=== PATIENT | male | born 1990 | race American Indian/Alaskan Native ===

== ENCOUNTER 2018-04-01 17:43 | Emergency (ER) | payer SELFPAY ==
[2018-04-01 18:04] VITALS: BP 133/91
[2018-04-01] MEDS ORDERED: ZOFRAN IV ONE (19:43)
[2018-04-01] MEDS ORDERED: NACL 0.9% 1000 ML 1,000 ML IV ONE (19:43)
[2018-04-01 20:11] LABS: Basophils % (Auto) 0.2 % (0.0-1.8); Eosinophils # (Auto) 0.1 K/mm3 (0.0-0.4); Hematocrit 58.5 % (35.5-45.6); Hemoglobin 19.5 gm/dl (11.8-15.2); Lymphocytes # (Auto) 1.5 K/mm3 (1.2-5.4); Mean Corpuscular HGB Conc 33 % (32-34); Mean Corpuscular Volume 91 fl (84-94); Monocytes # (Auto) 1.1 K/mm3 (0.0-0.8); Monocytes % (Auto) 9.2 % (0.0-7.3); Platelet Count 248 K/mm3 (140-440); Red Blood Count 6.42 M/mm3 (3.65-5.03); Red Cell Distribution Width 13.4 % (13.2-15.2)
[2018-04-01 20:30] LABS: Alanine Aminotransferase 23 units/L (7-56); Albumin 4.8 g/dL (3.9-5); BUN/Creatinine Ratio 8; Blood Urea Nitrogen 9 mg/dL (9-20); Calcium 9.7 mg/dL (8.4-10.2); Hemolysis Index 32
--- NOTE | 2018-04-01 20:52 | Emergency Department Report ---
ED Abdominal Pain HPI - General Chief Complaint: Abdominal Pain Stated Complaint: HEADACHE/ABD PAIN/DIARRHEA/VOMITING Time Seen by Provider: 04/01/18 19:18 Source: patient Mode of arrival: Ambulatory Limitations: No Limitations - History of Present Illness Initial Comments: 28-year-old -[place] male comes in complaining of all over abdominal flor n with nausea vomiting and diarrhea since yesterday. Patient states he has a headache that started today but has resolved. Patient denies any blurred vision and no dizziness. Patient reports intermittent nausea not able to hold down any food fluids. He reports 2 days of constant diarrhea. He does admit to having 3-4 shots of liquor on Sunday. He reports no other sick contact denies any unusual foods. He reports that the abdominal pain is sharp in nature has watery diarrhea and is located in the epigastric to umbilicus. Patient reports no past medical history. MD Complaint: abdominal pain -: days(s) (1) Location: diffuse Severity: severe Severity scale (0 -10): 7 Quality: sharp Consistency: constant (diarrhea), intermittent (nausea), colicky (abdominal pain) Improves With: nothing Worsens With: nothing Associated Symptoms: nausea, vomiting, diarrhea - Related Data Previous Rx's Medication Instructions Recorded Last Taken Type Ciprofloxacin HCl [Cipro] 500 mg PO BID #14 tablet 04/01/18 Unknown Rx Ondansetron [Zofran Odt] 4 mg PO Q8HR #12 tab.rapdis 04/01/18 Unknown Rx metroNIDAZOLE [Flagyl TAB] 250 mg PO Q8HR 7 Days #21 tablet 04/01/18 Unknown Rx Allergies Allergy/AdvReac Type Severity Reaction Status Date / Time shellfish derived Allergy Angioedema Verified 04/01/18 18:00 ED Review of Systems ROS: Stated complaint: HEADACHE/ABD PAIN/DIARRHEA/VOMITING Other details as noted in HPI Comment: All other systems reviewed and negative Gastrointestinal: abdominal pain, nausea, vomiting, diarrhea Neurological: headache (resolved) ED Past Medical Hx - Past Medical History Previous Medical History?: No - Surgical History Past Surgical History?: Yes Additional Surgical History: hernia repair at age 4 - Social History Smoking Status: Never Smoker Substance Use Type: Alcohol - Medications Home Medications: Home Medications Medication Instructions Recorded Confirmed Last Taken Type Ciprofloxacin HCl [Cipro] 500 mg PO BID #14 tablet 04/01/18 Unknown Rx Ondansetron [Zofran Odt] 4 mg PO Q8HR #12 tab.rapdis 04/01/18 Unknown Rx metroNIDAZOLE [Flagyl TAB] 250 mg PO Q8HR 7 Days #21 tablet 04/01/18 Unknown Rx ED Physical Exam - General Limitations: No Limitations General appearance: alert, in no apparent distress - Head Head exam: Present: atraumatic, normocephalic - Eye Eye exam: Present: EOMI - ENT ENT exam: Present: mucous membranes moist - Respiratory Respiratory exam: Present: normal lung sounds bilaterally. Absent: respiratory distress - Cardiovascular Cardiovascular Exam: Present: regular rate, normal rhythm. Absent: systolic murmur, diastolic murmur, rubs, gallop - GI/Abdominal GI/Abdominal exam: Present: soft, tenderness, normal bowel sounds - Neurological Exam Neurological exam: Present: alert, oriented X3 - Psychiatric Psychiatric exam: Present: normal affect, normal mood - Skin Skin exam: Present: warm, dry, intact, normal color. Absent: rash ED Course Vital Signs 04/01/18 04/01/18 18:00 22:04 Temperature 97.4 F L Pulse Rate 95 H Respiratory 18 20 Rate Blood Pressure 133/91 O2 Sat by Pulse 99 Oximetry - Reevaluation(s) Reevaluation #1: 04/01/18 21:56 po challenge started. ED Medical Decision Making - Lab Data Result diagrams: 04/01/18 19:50 04/01/18 19:50 Laboratory Tests 04/01/18 04/01/18 04/01/18 19:50 19:50 21:03 WBC 11.5 H RBC 6.42 H Hgb 19.5 H Hct 58.5 H MCV 91 MCH 30 MCHC 33 RDW 13.4 Plt Count 248 Lymph % (Auto) 13.0 L Kidder % (Auto) 9.2 H Eos % (Auto) 1.0 Baso % (Auto) 0.2 Lymph # 1.5 Kidder # 1.1 H Eos # 0.1 Baso # 0.0 Seg Neutrophils % 76.6 H Seg Neutrophils # 8.8 H Sodium 139 Potassium 3.9 Chloride 99.0 Carbon Dioxide 26 Anion Gap 18 BUN 9 Creatinine 1.2 Estimated GFR > 60 BUN/Creatinine Ratio 8 Glucose 98 Calcium 9.7 Total Bilirubin 1.10 AST 20 ALT 23 Alkaline Phosphatase 81 Total Protein 8.5 H Albumin 4.8 Albumin/Globulin Ratio 1.3 Lipase 15 Urine Color Straw Urine Turbidity Clear Urine pH 6.0 Ur Specific Stark 1.004 Urine Protein <15 mg/dl Urine Glucose (UA) Neg Urine Ketones Tr Urine Blood Neg Urine Nitrite Neg Urine Bilirubin Neg Urine Urobilinogen < 2.0 Ur Leukocyte Esterase Neg Urine WBC (Auto) < 1.0 Urine RBC (Auto) 1.0 - Medical Decision Making Patient has been evaluated by this provider in fast track. IV fluid CBC CMP Zofran, Toradol lipase stool culture stool WBC and O&P has been ordered and collected. As well as a urinalysis. Discussed case with Dr. Godfrey recommended for patient to be discharged home on Cipro and Flagyl and Zofran. Patient is started by mouth challenge now. Critical care attestation.: If time is entered above; I have spent that time in minutes in the direct care of this critically ill patient, excluding procedure time. ED Disposition Clinical Impression: Nausea vomiting and diarrhea, Acute infectious diarrhea Disposition: - TO HOME OR SELFCARE Is pt being admited?: No Does the pt Need Aspirin: No Condition: Stable Instructions: Gastroenteritis (ED), Acute Nausea and Vomiting (ED), Abdominal Pain (ED) Additional Instructions: Please complete antibiotics as prescribed. Please take Zofran as needed for nausea and vomiting. Please increase her fluid intake and advance her diet as tolerated. If your symptoms persist or gets worse please follow-up with her primary care provider. Prescriptions: Ciprofloxacin HCl [Cipro] 500 mg PO BID #14 tablet metroNIDAZOLE [Flagyl TAB] 250 mg PO Q8HR 7 Days #21 tablet Ondansetron [Zofran Odt] 4 mg PO Q8HR #12 tab.rapdis Referrals: EVAN MCLAUGHLIN MD [Primary Care Provider] - 3-5 Days [facility] [Provider Group] - 3-5 Days Forms: Accompanied Note, Work/School Release Form(ED)
[2018-04-01 21:20] LABS: Bilirubin,Urine NEG (Negative); Blood,Urine NEG (Negative); Color,Urine Straw (Yellow); Protein,Urine <15 mg/dL mg/dL (Negative); Urobilinogen,Urine < 2.0 mg/dL (<2.0); WBC,Urine < 1.0 /HPF (0.0-6.0)
[2018-04-01] MEDS ORDERED: TORADOL IV ONE (21:47)
== END 2018-04-01 23:30 | disposition home or self-care (01) ==
LOC: ED 17:43
DX: R11.2 Nausea with vomiting, unspecified (principal); R19.7 Diarrhea, unspecified; R10.13 Epigastric pain; Z91.013 Allergy to seafood
CPT/HCPCS: 36415; 80053; 81001; 83690; 85007; 85025; 87045; 87177; 96361; 96374; 96375; 99283; J1885; J2405; J7030